=== PATIENT | male | born 1960 | race Caucasian/White ===

== ENCOUNTER 2016-10-05 01:05 | Inpatient (IN) ==
[2016-10-05] MEDS ORDERED: DILAUDID IV ONE ×3 (01:47→02:35)
[2016-10-05 01:48] LABS: MANUAL DIFF NEEDED? NO
[2016-10-05 01:50] LABS: BASO% 0.6 % (0.0-0.8); EOS# 0.05 X1000 (0.0-0.7); EOS% 0.6 % (0.0-10.0); HEMATOCRIT 43.3 % (42.0-52.0); HEMOGLOBIN 15.4 g/dL (14.0-18.0); IMM GRAN# 0.02 X1000 (0.0-0.04); IMM GRAN% 0.2 % (0.0-0.5); LYMPH# 2.66 X1000 (1.2-3.4); LYMPH% 31.9 % (20.5-51.1); MCH 36.2 PG (27-31); MCHC 35.6 g/dL (33-37); MCV 101.6 FL (81-99); MONO% 7.2 % (1.7-9.3); MPV 11.6 FL (7.4-10.4); NEUT% 59.5 % (42.2-75.2); PLT 170 X1000 (130-400); RBC 4.26 XMIL (4.7-6.1)
[2016-10-05] MEDS ORDERED: DILAUDID ONE (01:50)
[2016-10-05] MEDS ORDERED: ZOFRAN ONE (01:50)
[2016-10-05] MEDS ORDERED: ZOFRAN IV ONE (01:51)
[2016-10-05 02:21] LABS: AGAP 14; ALBUMIN 4.4 g/dL (3.5-5.0); ALKALINE PHOSPHATASE 142 U/L (32-122); BUN 14 mg/dL (8-22); CALCIUM 10.1 mg/dL (8.8-10.2); CHLORIDE 99 mmol/L (98-107); COSMO 281; GOT 18 U/L (10-34); GPT 16 U/L (10-44); POTASSIUM 3.8 mmol/L (3.5-5.1); SODIUM 139 mmol/L (136-145); TCO2 26 mmol/L (25-35); TOTAL BILIRUBIN 0.46 mg/dL (0.20-1.00)
--- NOTE | 2016-10-05 03:20 | HISTORY AND PHYSICAL ---
PRIMARY CARE PHYSICIAN: Dr. Tana Rose. CHIEF COMPLAINT: Status post fall, right ankle pain, left wrist pain. HISTORY OF PRESENTING ILLNESS: This 56-year-old male with a history of DVT, seizures, diabetes mellitus type 2, and hypertension apparently was drinking when he went to his backyard and somehow tripped over the carpet and landed on his left wrist, and seems to have tangled his foot on a small hole in the backyard. He developed a moderate amount of pain and was brought to the emergency department. He had imaging done which did show a right tibial-fibular fracture. It was comminuted and also impacted, left radial fracture. Due to his presenting symptoms, it was thought that he would need admission for further orthopedic evaluation and management. At the time of my examination, he had denied any headache, fever, chills, chest pain, shortness of breath, hemoptysis, or any weight changes but complained of right ankle and wrist and forearm pain. PAST MEDICAL HISTORY: Includes hypertension, hypothyroidism, diabetes mellitus type 2, DVT, seizures. PAST SURGICAL HISTORY: Cholecystectomy, right knee surgery, left eye surgery, IVC filter. ALLERGIES: No known drug allergies. CURRENT MEDICATIONS: As listed in the MAR. SOCIAL HISTORY: He is a former smoker. He uses snuff now. History of alcohol use daily. Denies any illicit drug use. FAMILY HISTORY: No history of coronary disease. REVIEW OF SYSTEMS: Twelve point review of systems as listed in the HPI. Other systems negative. PHYSICAL EXAMINATION: GENERAL: Cooperative, friendly, obese male. He is resting comfortably now. VITAL SIGNS: Temperature 99.1 degrees, pulse 95, respirations 20, blood pressure 121/93. HEENT: Extraocular movements intact. PERRLA. NECK: No masses. CHEST: Clear to auscultation. CARDIOVASCULAR: Regular rate and rhythm. ABDOMEN: Soft, obese, positive bowel sounds. EXTREMITIES: Right leg in a splint. Left forearm with moderate tenderness. : No bladder distention. SKIN: Warm. NEUROLOGIC: He is awake, alert, oriented x3. LABORATORIES AND STUDIES: WBCs 8.35, hemoglobin 15.4, hematocrit 43.3, platelets 170,000. Sodium 139, potassium 3.8, chloride 99, CO2 of 26, BUN is 14, creatinine is 1.2, glucose 157. ASSESSMENT: A 56-year-old male with a history of hypertension, diabetes mellitus type 2, deep venous thrombosis, and seizures, apparently was drinking and when he went to his backyard, he somehow slipped on the carpet and he twisted his ankle on a small hole that was in the backyard. He fell onto his arm and developed moderate pain in his right ankle. He had presented to the emergency department. He had imaging done which showed a right tibia-fibula fracture and also left impacted radial fracture. Due to his presenting symptoms, he will need hospitalization for further management. 1. Status post mechanical fall. 2. Right tibia-fibula fracture. 3. Left radial impacted fracture. 4. Chronic alcoholism. 5. Deep venous thrombosis, on Eliquis. 6. Diabetes mellitus type 2. 7. Hypertension. PLAN: 1. We will admit patient to medical floor with telemetry. 2. We will give the patient adequate pain control. 3. We will consult orthopedics. 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 5. We will hold his Eliquis in anticipation for possible surgery. 6. We will monitor blood glucose and put the patient on sliding scale insulin regimen. 7. We will monitor blood pressure and resume antihypertensive agents. 8. We will put patient on seizure precautions. 9. We will continue to follow and reassess. cc: Ruperto Carrillo MD
[2016-10-05] MEDS ORDERED: VASOTEC IV PRN (03:31)
[2016-10-05] MEDS: DILAUDID IV PRN ×6 (04:01→22:10)
--- NOTE | 2016-10-05 08:34 | Diag Imaging Result Doc PS360 ---
ANKLE COMPLETE RIGHT - 10/05/2016 INDICATION: post reduction TECHNIQUE: Three views COMPARISON: One hour earlier FINDINGS: There is very little change in the alignment of the comminuted, displaced both bone tibia and fibula fracture. The ankle mortise remains intact. IMPRESSION: No change from prior. Electronically signed by Loi Mcgowan 10/05/2016 8:32 AM
--- NOTE | 2016-10-05 08:35 | Diag Imaging Result Doc PS360 ---
ANKLE COMPLETE RIGHT - 10/05/2016 INDICATION: FALL TECHNIQUE: Three views COMPARISON: None FINDINGS: There is a badly comminuted, displaced both bone distal tibia and fibula fracture. This is all above the ankle mortise. The ankle mortise is intact. IMPRESSION: Comminuted, displaced both bone distal lower leg fracture. Electronically signed by Loi Mcgowan 10/05/2016 8:33 AM
--- NOTE | 2016-10-05 08:36 | Diag Imaging Result Doc PS360 ---
WRIST COMPLETE LEFT - 10/05/2016 INDICATION: FALL TECHNIQUE: Three views COMPARISON: None FINDINGS: There is a severely impacted distal radius fracture. No dislocation of the radiocarpal joint. There is displaced fracture of the ulnar styloid process as well. IMPRESSION: Severe Colles' fracture. Electronically signed by Loi Mcgowan 10/05/2016 8:34 AM
--- NOTE | 2016-10-05 08:36 | Diag Imaging Result Doc PS360 ---
CHEST-1 VIEW - 10/05/2016 INDICATION: fall TECHNIQUE: COMPARISON: 05/29/2012 FINDINGS: The lungs are normally expanded and clear. Heart size and mediastinal contours are normal. No pneumothorax or pleural effusion. IMPRESSION: Negative exam. Electronically signed by Loi Mcgowan 10/05/2016 8:33 AM
[2016-10-05] MEDS: DEPAKOTE ER PO SCH ×2 (09:18→20:30)
[2016-10-05] MEDS: HUMULIN R SUBQ SCH ×3 (11:50→20:31)
[2016-10-05] MEDS: PERCOCET-5 PO PRN ×3 (11:56→20:30)
[2016-10-05] MEDS: TORADOL IV SCH ×3 (11:58→22:10)
[2016-10-05] MEDS: SODIUM CHLORIDE 0.9% INJ SCH (11:58)
[2016-10-05] MEDS: PROTONIX IV SCH (11:59)
--- NOTE | 2016-10-05 12:18 | Diag Imaging Result Doc PS360 ---
LOWER LEG-RIGHT - 10/05/2016 at 1153 INDICATION: Tib/Fib Fx with TKA TECHNIQUE: Four views COMPARISON: 0254 FINDINGS: There is a right total knee arthroplasty. There is significant irregularity of the femoral shaft distally consistent with old healed injuries. No hardware fracture or loosening. No change in the severe ankle fracture. IMPRESSION: No new findings. Electronically signed by Loi Mcgowan 10/05/2016 12:15 PM
--- NOTE | 2016-10-05 18:13 | CONSULTATION ---
DATE OF CONSULTATION: 10/05/2016 SUBJECTIVE: Hakan Don is a 56-year-old male who states he tripped and fell, injured his left wrist and right leg. He was admitted for a right tibia-fibula fracture and a left wrist injury. He states he has had a right total knee arthroplasty. PHYSICAL EXAM: Well-developed, well-nourished male. He is alert and cooperative with exam. He has pain any range of motion of his leg. He has pain with range of motion his wrist as well. Both neurovascular intact. X-rays show a comminuted distal 4th tibia-fibula fracture on the right. X-rays of his wrist show a comminuted 3-part intraarticular distal radius fracture. IMPRESSION: Right comminuted tibiofibular fracture distally and left comminuted distal radius fracture intraarticular 3-part. PLAN: Plan will be to place plate and screws on his left wrist, likely plate and screws of his fibula, the difficulty is the tibia. Normally we would place and intramedullary nail however with his total knee in place he will likely need the plate and screws of the tibia which I do not routinely do. I am going to order some tibia-fibula x-rays and discuss this with my partner, is possibility we may have to refer him to [place] for surgical intervention. cc: Greg Street MD
[2016-10-06] MEDS: PERCOCET-5 PO PRN ×2 (00:45→07:46)
[2016-10-06] MEDS: DILAUDID IV PRN ×5 (01:50→16:42)
[2016-10-06] MEDS: TORADOL IV SCH ×4 (05:01→23:38)
[2016-10-06 05:58] LABS: HEMOGLOBIN 14.3 g/dL (14.0-18.0); MCH 36.2 PG (27-31); MCHC 34.9 g/dL (33-37); MCV 103.8 FL (81-99); MPV 11.6 FL (7.4-10.4); RBC 3.95 XMIL (4.7-6.1)
[2016-10-06] MEDS: HUMULIN R SUBQ SCH ×3 (06:48→16:43)
[2016-10-06 07:14] LABS: AGAP 15; BUN 16 mg/dL (8-22); CALCIUM 9.5 mg/dL (8.8-10.2); CHLORIDE 98 mmol/L (98-107); COSMO 279; POTASSIUM 4.5 mmol/L (3.5-5.1); SODIUM 139 mmol/L (136-145); TCO2 26 mmol/L (25-35)
--- NOTE | 2016-10-06 08:35 | PROGRESS NOTE ---
DATE: 10/06/2016 SUBJECTIVE: Mr. Don is lying in the bed this morning. Unfortunately, he had tripped in his back yard and ended up twisting his leg and breaking it on the right side and fallen on his wrist on the left side and broke it. He was admitted per the hospitalist service. My partner, Dr. Cai saw him, and I will be taking over his care today. He is splinted on the right lower extremity and has a removable wrist splint on the left side. PHYSICAL EXAMINATION/OBJECTIVE: Left Upper Extremity Examination: He can move all his fingers. Not a lot of swelling to the wrist on exam today. Had good sensation to light touch to the fingers. No skin ulcerations or abrasions seen. Right Lower Extremity Examination: Right lower extremity was splinted. He does not move the toes well. Has good capillary refill to all the toes. RADIOGRAPHS: Radiographs were reviewed which shows a right distal 3rd tibia fracture with a butterfly fragment medially and distal fibula fracture as well. Radiographs of the left wrist shows a distal radius fracture that is the shortening and somewhat displaced. ASSESSMENT: 1. Left distal radius fracture. 2. Left the distal tibia and fibula fracture. PLAN: Will plan on getting things fixed today. Mr. Don is NPO. We will plan on plating both the tibia and the fibula and the distal radius. I went over with him the procedure, risks, benefits, and potential complications. Risks include, but are not limited to, infection, wound healing problems, damage to nerves, arteries, veins, numbness, malunion, nonunion, hardware related issues, continued pain, deep venous thrombosis, and anesthesia related risks. After discussing these with the patient, he expressed understanding and wished to proceed. He does have a history of deep venous thrombosis so he will go on Lovenox postoperatively for deep venous thrombosis prophylaxis. cc: Kaleb Gardner MD
[2016-10-06] MEDS: DEPAKOTE ER PO SCH ×2 (09:22→23:39)
[2016-10-06] MEDS: SODIUM CHLORIDE 0.9% INJ SCH (10:42)
[2016-10-06] MEDS: PROTONIX IV SCH (10:43)
--- NOTE | 2016-10-06 14:56 | PROGRESS NOTE ---
DATE: 10/06/2016 SUBJECTIVE: Patient reports feeling severe pain in the left hand and right leg. OBJECTIVE: Vital Signs: Temperature 97.5 degrees, heart rate 50, respiratory rate 14, blood pressure 136/70, O2 saturation 95% on room air. General: This is a 56-year-old, chronically ill looking male, lying in bed, in no acute distress. HEENT: Head is normocephalic, atraumatic. Anicteric sclerae and pale conjunctivae. Mucous membranes moist. Neck: Supple. No JVD noted. No carotid bruits. No lymphadenopathy. No thyromegaly. Cardiovascular: S1, S2 heard. No murmurs, gallops, or rubs. Regular rate and rhythm. Respiratory: Clear bilaterally to auscultation. No work of breathing or using accessory muscles. Abdomen: Soft, nontender to palpation. Bowel sounds present. No organomegaly. Extremity: Right leg in a splint, left forearm with moderate tenderness to palpation, also with a splint. Neurological: Patient awake and oriented x3. Able to move 4 extremities. Cranial nerves 2-12 grossly normal. LABORATORY DATA: The BMP and CMP are normal. ASSESSMENT AND PLAN: 1. Right tibia-fibula fracture/left radial impacted fracture. Dr. Gardner from Orthopedics is going to take this patient to the OR this afternoon. We will follow his recommendations. 2. Chronic alcoholism. We are going to monitor this patient closely and start baclofen 10 mg 2 times per day for possible alcohol withdrawal. 3. Deep venous thrombosis, on Eliquis. We are going to definitely hold all blood thinners until this patient gets surgery and after that, I think we can restart Eliquis. 4. Diabetes mellitus type 2. We will continue with sliding scale insulin. 5. Hypertension. Blood pressure is well controlled. cc: Rafael Braxton MD
[2016-10-06] MEDS ORDERED: DIPRIVAN 1% ONE (17:45)
[2016-10-06] MEDS ORDERED: QUELICIN (DOSE) ONE (17:45)
[2016-10-06] MEDS ORDERED: FENTANYL ONE ×2 (17:47→19:10)
[2016-10-06] MEDS ORDERED: KEFZOL 2 GM/D5W 2 GM/50 ML IVPB ONE (17:53)
[2016-10-06] MEDS ORDERED: ROBINUL ONE (18:13)
[2016-10-06] MEDS ORDERED: OFIRMEV 1000 MG/ISOTONIC SOLN 1,000 MG/100 ML BOTTLE ONE (18:14)
[2016-10-06] MEDS: DEMEROL ONE ×2 (21:18→23:33)
[2016-10-06] MEDS: LABETALOL ONE ×2 (21:44→23:32)
[2016-10-06] MEDS: NORCO-10 PO PRN (23:38)
[2016-10-06] MEDS: DESYREL PO SCH (23:39)
[2016-10-06] MEDS ORDERED: NS 1,000 ML ONE (23:47)
[2016-10-07] MEDS: HUMULIN R SUBQ SCH ×5 (00:22→23:14)
[2016-10-07] MEDS: DILAUDID IV PRN ×4 (00:32→23:13)
[2016-10-07] MEDS: TORADOL IV SCH ×2 (05:35→11:27)
[2016-10-07] MEDS: NORCO-10 PO PRN ×3 (05:35→20:34)
--- NOTE | 2016-10-07 07:51 | OPERATIVE NOTE ---
PROCEDURE DATE: 10/06/2016 PREOPERATIVE DIAGNOSES: 1. Left distal radius fracture (intra-articular). 2. Right tibial shaft fracture with butterfly fragment. 3. Right fibular fracture with butterfly fragment. POSTOP DIAGNOSES: 1. Left distal radius fracture (intra-articular). 2. Right tibial shaft fracture with butterfly fragment. 3. Right fibular fracture with butterfly fragment. PROCEDURES: 1. Left open reduction internal fixation distal radius fracture. 2. Right open reduction internal fixation tibial shaft fracture. 3. Right open reduction internal fixation distal fibular fracture. 4. A 22 modifier for a difficult case. SURGEON: Kaleb Gardner MD. STEEL FABRICATOR: BRIAN Quintana. ANESTHESIA: General with LMA. ESTIMATED BLOOD LOSS: For the total case 50 mL. IMPLANTS: For the wrist a Synthes distal radius plate and screws. For the right leg a Synthes large fragment metaphyseal plate for the tibial shaft and Synthes 1/3 tubular plate and screws for the distal fibular fracture. DISPOSITION: To PACU, hemodynamically stable. INDICATION FOR PROCEDURE: Mr. Don is a 56-year-old male who presented to the emergency department yesterday after a fall. He was admitted per the hospitalist service, made NPO after midnight. He was found to have a left distal radius fracture and a right tib-fib fracture. I discussed with him this morning about operative intervention. We went over the procedure, risks, benefits, and potential complications. He expressed understanding and wished to proceed. DESCRIPTION OF PROCEDURE: Mr. Don was identified in the preop holding area. Left wrist was marked as the correct surgical site and the right leg was marked as the correct surgical site. He was then wheeled to the operating room, placed supine on the operating table. All bony prominences well padded. He was induced under general anesthesia. Endotracheal tube was placed. We decided to start with left distal radius first. So, a left arm tourniquet was placed. The left upper extremity then prepped with chlorhexidine gluconate scrub and then ChloraPrep and draped in normal sterile fashion. Surgical pause was performed. We identified the correct patient, correct side, and the correct procedure. Preop antibiotics were given. Esmarch was used to exsanguinate the left upper extremity and tourniquet inflated to 250 mmHg. Started with a volar approach to the distal radius. Dissection was carried down through the FCR tendon sheath, down to the pronator quadratus, which was lifted off the radial aspect of the distal radius. We identified our fracture which was fairly comminuted and there was a free piece there that we removed since it had no soft tissue attachments. We pulled longitudinal traction which helped with our reduction and then I pinned it with a K-wire. Then squeezing from radial to ulnar I reduced the intra-articular piece and pinned it as well. Fluoroscopic imaging showed we had good reduction of our joint in both AP and lateral views. I then put my plate in position. I secured it proximally with a nonlocking screw and then secured it distal with all the locking pegs and then 2 more proximal screws. Temporary fixation wires were then removed. Final images were taken which showed we had good reduction of our distal radius and good position of all our plates and screws. I then irrigated everything copiously with normal saline. Then 2-0 Vicryl was used to close subcutaneous and nylon on the skin. Adaptic, 4 x 4s, ABD, soft roll, and volar splint was applied. Tourniquet was let down. The patient had good refill return to the fingers. We then took down all of the drapes. We then focused on the right lower extremity. Tourniquet was placed to the right thigh. Right lower extremity then prepped with chlorhexidine gluconate scrub and then ChloraPrep, and draped in normal sterile fashion. Another surgical pause was performed at this time to identified the correct patient, correct side, and the correct procedure. Preop antibiotics had already been given. Esmarch used to exsanguinate the right lower extremity and tourniquet was inflated to 300 mmHg. We started on the medial side. I made an incision right around the medial malleolus and then percutaneously slid our plate up the medial face of the tibia. I passed that butterfly fragment up into the proximal tibia. I did put a 22 modifier because his tibial alignment was already malunited from his total knee arthroplasty and if you looked he had a lot of bowing to the tibia and it was a little bit difficult to see exactly where his alignment was preoperatively. plate to accommodate his deformity and to line up that fracture really as best we could. Once we had everything in line really fairly well, I secured the plate distally 1st and then made an incision proximally and secured it with several screws then as well. Fluoroscopic imaging was taken and it looked like he was a little bit of varus but his overall alignment looked normal for him and that is what was very difficult to metal tank builder was what was his preop alignment. Actually the fracture lined up really well and the fibula was out to length as well, so I do not think we were in varus through our fracture site. I then percutaneously put some more screws in, secured everything both proximally and distally. After that we turned our attention to the distal fibula. Incision was made over the distal fibula longitudinally. Dissection was carried down to the level of the fracture. There was a large butterfly fragment posteriorly. We ended up rotating it around and lining it up to help get our length. That fracture was actually pretty comminuted but I am getting a good alignment and we were out to length. It did like we were too long or too short on our fibula. Then I just bridge plated past everything with a 10 hole 1/3 tubular plate. I screwed it distal and proximal and that held things together very well. Final images were taken which showed we had good tibial and fibular fixation. Like I said, the alignment was very hard to metal tank builder overall, but I think we got him back to where he was preoperatively. I then irrigated everything copiously with normal saline. We closed the deep layer with 0 Vicryl, the subcutaneous with 2-0 Vicryl, and the skin with teddy. Adaptic, 4 x 4s, ABD, soft roll, and posterior splint was applied. Tourniquet was let down. The patient had good capillary refill return to the toes. Patient was then awoke from general anesthesia, moved to his own bed, and taken to the PACU in stable condition. Postoperatively, patient will be nonweightbearing right lower extremity and limited weightbearing left upper extremity. He will be transferred back to the floor. We are working on getting rehab set up for him postoperatively. He will go on Lovenox for DVT prophylaxis postoperatively as well. cc: Kaleb Gardner MD
[2016-10-07] MEDS: DEPAKOTE ER PO SCH ×2 (09:00→20:35)
[2016-10-07] MEDS: PERIDEX MT SCH ×2 (09:00→20:35)
[2016-10-07] MEDS: PROTONIX IV SCH (11:27)
[2016-10-07] MEDS: SODIUM CHLORIDE 0.9% INJ SCH (11:28)
--- NOTE | 2016-10-07 15:28 | PROGRESS NOTE ---
DATE: 10/07/2016 SUBJECTIVE DATA: Mr. Don is alert and oriented, laying comfortably in the bed. He states he does have some pain, mostly to the right ankle, but also some pain in the left wrist, as well. He does state that he feels better than he thought that he would. OBJECTIVE DATA: Left upper extremity: The splint is clean, dry, and intact. He can wiggle all his fingers. He has good capillary refill. He has good color. The fingers are warm. He has good sensation. No numbness or tingling. Right lower extremity: The splint is clean, dry, and intact. He can wiggle the toes. He has good sensation. He denies numbness or tingling. He has good color and he has good capillary refill, and the toes are warm. IMPRESSIONS: 1. Postoperative left open reduction and internal fixation of distal radius fracture. 2. Right open reduction and internal fixation of tibia shaft fracture. 3. Right open reduction and internal fixation of distal fibular fracture. PLAN: Vital signs and lab work are all stable. His pain has been fairly well controlled. We will continue him to be nonweightbearing to the right lower extremity and he will be light weightbearing on the left upper extremity. He will likely need rehabilitation at time of discharge and, from an orthopedic standpoint, he is ready for discharge whenever the Hospitalist Service is ready. We will continue him on DVT prophylaxis until he is weightbearing. Dictated by BRIAN Quintana for Kaleb Gardner MD cc: BRIAN Quintana MD [facility]
--- NOTE | 2016-10-07 16:27 | PROGRESS NOTE ---
DATE: 10/07/2016 SUBJECTIVE: Today, Mr. Don referred to be doing fine. Just some pains to the fracture sites. OBJECTIVE: Vital signs: Blood pressure is 158/79, pulse of 98, respiration 18, temperature 99.5 degrees. General: Mr. Don is a 56-year-old male. He is in bed, in mild painful distress. HEENT: Mucosa is pink and moist. Anicteric. Acyanotic. Neck: Supple. Chest: Clear. Cardiovascular: Regular rate and rhythm. Abdomen: Soft. Extremities: No pedal edema. The right lower extremity is in orthopedic casts as well as the left upper extremity. EDITORIAL SPECIALIST: Patient is awake and oriented. LABORATORY DATA: None for today. Glucose is 128. ASSESSMENT: 1. Right tibia-fibular fracture. Left radial impacted fracture status post open reduction- internal fixation of the fractures by Dr. Gardner. Today is day one postoperative. Patient seems to be doing fine. 2. Chronic alcohol abuse. 3. Diabetes mellitus. Patient is on sliding scale. 4. Hypertension, stable. PLAN: In general, Mr. Don is doing fine. He is day 1 postop. He is getting deep venous thrombosis prophylaxis with Lovenox. We will continue adequate pain control. cc: Trevor Zhao MD
[2016-10-07] MEDS: LOVENOX SUBQ SCH (16:57)
[2016-10-07] MEDS: DESYREL PO SCH (20:35)
[2016-10-08] MEDS: NORCO-10 PO PRN ×3 (01:58→17:08)
[2016-10-08] MEDS: DILAUDID IV PRN ×3 (04:59→20:47)
[2016-10-08] MEDS: PERIDEX MT SCH ×2 (09:02→20:46)
[2016-10-08] MEDS: DEPAKOTE ER PO SCH ×2 (09:08→20:47)
[2016-10-08] MEDS: PROTONIX IV SCH (12:28)
[2016-10-08] MEDS: SODIUM CHLORIDE 0.9% INJ SCH (12:28)
[2016-10-08] MEDS: HUMULIN R SUBQ SCH ×2 (12:29→17:11)
--- NOTE | 2016-10-08 14:09 | PROGRESS NOTE ---
DATE: 10/08/2016 SUBJECTIVE DATA: Mr. Don is alert and oriented. He is currently lying comfortably in bed. He states he does have some pain still to the right ankle and the left wrist but it is better than yesterday. OBJECTIVE DATA: Left upper extremity: The splint is clean, dry, and intact. He can wiggle all of the fingers. He has good sensation. He has good capillary refill. Right lower extremity exam: The splint is clean, dry, and intact. He can wiggle the toes. He has good sensation. He denies numbness or tingling. He has good color. He has good capillary refill. The toes are warm. IMPRESSIONS: 1. Postoperative left open reduction internal fixation of distal radius fracture. 2. Right open reduction internal fixation of tibia shaft fracture. 3. Right open reduction internal fixation of distal fibular fracture. PLAN: Vital signs and lab work are all stable. Mr. Don states his pain is under control. We ordered physical therapy and he did get up with them and apparently he did well maintaining nonweightbearing to the right ankle. The plan is to get him to [facility] in [place]. He does have a bed there and from our standpoint, he is ready for discharge. We will continue him on DVT prophylaxis until he is weightbearing and he will follow up with us this Thursday in the office. Dictated by BRIAN Quintana for Kaleb Gardner MD cc: BRIAN Quintana MD [facility]
--- NOTE | 2016-10-08 15:46 | PROGRESS NOTE ---
DATE: 10/08/2016 SUBJECTIVE: Today, Mr. Don referred to be doing relatively fine. He has been evaluated this afternoon by PT. He did not do remarkably very well on their evaluation and they definitely recommended the patient does inpatient rehab. OBJECTIVE: Vital Signs: Blood pressure is 106/71, pulse is 94, respirations 16, temperature 97.6 degrees. On general exam, Mr. Don is a 56-year-old male. He is in bed, not in any distress. HEENT: Mucosa is pink and moist. Anicteric. Acyanotic. Neck is supple. Chest is clear. Cardiovascular: Regular rate and rhythm. Abdomen is soft, nontender. Extremities: No pedal edema. The right lower extremity is in orthopedic casts and left upper extremity is wrapped up in a Band-Aid. CAPTAIN WAITER/WAITRESS: Patient is awake and oriented. LABORATORY DATA: Chemistry is reviewed. Glucose is 190. ASSESSMENT: 1. Right tibia-fibula fracture. 2. Left radial fracture, status post open reduction and internal fixation of all the fractures by Dr. Gardner. Today is day 2 postop. Patient just barely had physical therapy today. We will, therefore, observe him overnight and see how he does and, hopefully, tomorrow he does a little better with physical therapy and we can discharge him to the rehab. 3. Chronic alcohol abuse. Patient has been counseled. 4. Diabetes mellitus. Patient was on sliding scale. We are going to start him back on his home medications including the glipizide 10 mg b.i.d. 5. Hypertension is controlled. 6. We will continue with DVT prophylaxis. cc: Trevor Zhao MD
[2016-10-08] MEDS: LOVENOX SUBQ SCH (17:08)
[2016-10-08] MEDS: DESYREL PO SCH (20:47)
[2016-10-09] MEDS: HUMULIN R SUBQ SCH ×3 (01:49→11:11)
[2016-10-09] MEDS: DILAUDID IV PRN ×2 (02:03→05:01)
[2016-10-09 06:01] VITALS: BP 112/65
--- NOTE | 2016-10-09 08:30 | DISCHARGE SUMMARY ---
ADMISSION DATE: 10/05/2016 DISCHARGE DATE: 10/08/2016 PERTINENT PROCEDURES: 1. Lower extremity x-ray showed irregularity of the femoral shaft distally consistent with old healed injuries, no new findings. 2. Ankle x-ray on the right showed displaced both bone tibia and fibula fracture. 3. Chest x-ray was negative exam. 4. Wrist x-ray showed a severe Colles fracture. 5. Left open reduction and internal fixation of distal radius fracture, right open reduction and internal fixation of tibial shaft fracture, and right open reduction and internal fixation of distal fibula fracture performed by Dr. Gardner. DISCHARGE DIAGNOSES: 1. Status post left open reduction and internal fixation of distal radius fracture. Right open reduction and internal fixation of tibia shaft fracture. Right open reduction and internal fixation of distal fibular fracture. The patient is nonweightbearing to the right lower extremity. Light weightbearing to the left upper extremity. He will be discharged to rehab and will continue on DVT prophylaxis until he is weightbearing. 2. Chronic alcohol abuse. The patient has been educated about cessation. No signs and symptoms of withdrawal. Stable. 3. Diabetes mellitus. Continue pattern sugars. 4. Hypertension, stable. 5. Seizures. Continue Depakote. 6. Deep vein thrombosis status post [place] filter. 7. Hypothyroidism. HOSPITAL COURSE: Mr. Don is a 56-year-old male who carries a history of DVT status post [place] filter, seizures, diabetes mellitus type 2, hypertension. He had been drinking in his backyard. He somehow tripped over the carpet, landed on his left wrist, and seemed to have tangled his foot in a small hole in the backyard. He developed a moderate amount of pain and was brought to the emergency room. His imaging showed a right tibia/fibular fracture. It was communicated and also impacted, as well as a left radial fracture the patient was admitted for orthopedic evaluation. His serum alcohol level on arrival to the ED was 229. He was closely monitored for any signs and symptoms of withdrawal. The patient remained stable throughout his hospital stay. He did undergo a left open reduction and internal fixation of his distal radius fracture, right open reduction and internal fixation of the tibial shaft fracture, and a right open reduction and internal fixation of distal fibular fracture by Dr. Gardner. The patient's pain has been fairly well controlled. He will be nonweightbearing on the right lower extremity and light weightbearing to the left upper extremity. He has worked with PT ans secondary social studies teacher has found him placement. He is being discharged to rehab today and he will need to continue DVT prophylaxis until he is weightbearing. VITAL SIGNS: Temperature is 97.6 degrees, heart rate 94, respirations 16, blood pressure 106/71, O2 is 95% on room air. DISCHARGE DIET: Diabetic. DISCHARGE MEDICATIONS: As per Dr. Zhao. FOLLOWUP: The patient is being discharged to rehab. He will follow up with Dr. Gardner on 10/13/2016, as well as Dr. Tana Rose after rehab. Again, patient will be nonweightbearing to his right lower extremity and light weightbearing on his left upper extremity. We will continue with DVT prophylaxis until he is weightbearing. He has also been educated about alcohol cessation. He can return to the ED for any worsening of symptoms. DISCHARGE TIME: 30 minutes. Dictated by BRIAN Benavidez for Trevor Zhao MD cc: MD Tana Mensah MD Patient seen and evaluated by me and he is ok to be discharged. Please see the details of my progress note on day of discharge. HARLEY
[2016-10-09] MEDS: DEPAKOTE ER PO SCH (09:29)
[2016-10-09] MEDS: NORCO-10 PO PRN (09:31)
[2016-10-09] MEDS: PERIDEX MT SCH ×2 (09:32)
[2016-10-09] MEDS: PROTONIX IV SCH ×2 (09:38→11:12)
[2016-10-09] MEDS: SODIUM CHLORIDE 0.9% INJ SCH (09:38)
--- NOTE | 2016-10-09 10:33 | PROGRESS NOTE ---
DATE: 10/09/2016 SUBJECTIVE: Today Mr. oDn refers to be doing a lot better. He has been able to sit up in the bed to eat his breakfast. No major complaints. OBJECTIVE: Vital Signs: Stable. Blood pressure is 112/65, pulse of 84, respirations 16, and temperature 97.9 degrees. General: On general exam, Mr. Don is a 56-year-old male. He is in bed, not seemingly distressed. HEENT: Mucosa is pink and moist. Anicteric. Acyanotic. Neck: Supple. Chest: Clear. Cardiovascular: Regular rate and rhythm. Abdomen: Soft, nontender. Extremities: No pedal edema. The right lower extremity is in orthopedic cast. The left upper extremity is wrapped up in orthopedic bandage. DIRECTOR OF CORPORATE SALES: Patient is awake and alert and oriented. LABS: Glucose is 150 this morning. ASSESSMENT: 1. Right tibia-fibula fracture and left radial fracture status post open reduction and internal fixation of all the fractures. Today is day 3 postoperatively; the patient seems to be doing fine. He is going to be discharged to rehabilitation this morning. 2. Chronic alcohol abuse. Patient has been counseled. 3. Diabetes mellitus, controlled. The patient will continue with his oral hypoglycemic agents. 4. Hypertension, controlled. 5. 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 Patient is followed up by his primary care doctor and a physician in [place] as well. PLAN: So, in general, Mr. Don is doing a lot better today. We are going to discharge him to a rehab facility to continue with his physical rehabilitation. He will continue on all his medications at home. We have given him a script for [place] for adequate pain control. Please refer to the details of the discharge summary in the chart. cc: Trevor Zhao MD
[2016-10-09] MEDS ORDERED: MILK OF MAGNESIA PO ONE (11:45)
--- NOTE | 2016-10-10 03:41 | DISCHARGE SUMMARY ---
ADMISSION DATE: 10/05/2016 DISCHARGE DATE: 10/09/2016 ADDENDUM REPORT The patient will be discharged today to [facility] in [place]. He has had no acute events overnight. He remains clinically stable for discharge. VITAL SIGNS: Temperature is 97.9 degrees, heart rate 84, respirations 16, blood pressure is 112/65, O2 is 96% on room air. Dictated by BRIAN Benavidez for Trevor Zhao MD cc: Trevor Zhao MD
--- NOTE | 2016-10-15 19:38 | PROVIDER DOCUMENTATION ---
This chart was entered by Choco Fultno Scribe, acting as scribe for Júnior Hunt MD. HPI-Musculoskeletal Pain/Inj - GENERAL Chief Complaint: Intoxicated Stated Complaint: seizure/ankle inj Time Seen by Provider: 10/05/16 01:09 Source: patient - HX OF PRESENT ILLNESS-MUSKULOSKELTAL Nature of Presenting Problem: Pt is a 56 yowm who presents to ER via EMS with CC of right ankle and left wrist injury, secondary to fall. Pt reports that he was walking outside, across his lawn, when his right foot became caught in a hole, causing pt to twist his right ankle and land on his left wrist. Pt denies any LOC/N/V/or changes in vision. Pt admits to drinking 1/2 case of beer. Pt denies having a seizure. Quality of Pain: reports: cramping, throbbing Severity in ED: moderate Onset/Duration: just prior to arrival Timing: still present Any recent injury?: Yes Locality of Occurance: Home Similar Symptoms Previously?: No Recently seen or treated by another doctor?: No - FALL INJURY Location of Pain/Injury: reports: upper extremity (left wrist), lower extremity (right ankle) Pain Radiation: reports: no radiation Reason for Fall: reports: tripped Symptoms prior to fall:: reports: none Loss of Consciousness: no loss of consciousness Injury Associated Symptoms: reports: joint pain, muscle aches, unable to bear weight, trouble walking. denies: arm pain, back/neck pain, chest pain, dizziness, headaches, nausea, puncture wound, shortness of breath, sensory/ motor loss, snap/crack/pop sensation, pain with inspiration, vomiting, weakness Review of Systems - Adult - REVIEW OF SYSTEMS - ADULT Constitutional: denies: chills, fever, fatique, night sweats, weight gain, weight loss Eyes: reports: no symptoms reported Ears, Nose, Mouth & Throat: reports: no symptoms reported Cardiovascular: reports: no symptoms reported Respiratory: reports: no symptoms reported Gastrointestinal: reports: no symptoms reported Genitourinary: reports: no symptoms reported Musculoskeletal: reports: joint pain, joint swelling, muscle aches. denies: bone pain, back pain, frequent leg cramps, muscle weakness, neck pain Integumentary: reports: no symptoms reported Neurological: reports: no symptoms reported Psychiatric: reports: no symptoms reported Endocrine: reports: no symptoms reported Hematologic/Lymphatic: reports: no symptoms reported Allergic/Immunologic: reports: no symptoms reported All Other Systems: Reviewed and Negative Past History - Adult - PAST MEDICAL HISTORY-ADULT Review of Records: reports: Nursing Assessment Review, Medications Reviewed Cardiovascular: reports: blood clots (bilateral lower legs), HTN, hyperlipidemia Respiratory: reports: COPD Musculoskeletal: reports: arthritis (gouty), other (neuropathy) Other Conditions: reports: other cancer (skin) - PRIOR SURGERIES/PROCEDURES Surgical/Procedure History: reports: orthopedic (extremity), other (eye, ministerio filter) - IMMUNIZATION STATUS Childhood Immunizations: See Nurse Assessment Flu Vaccine: See Nurse Assessment Physical Exam-Injury Related - Physical Exam-Injury Related Initial Vital Signs Reviewed: Yes General Appearance: appears well, alert, moderate distress Eyes: PERRL/EOMI, pink conjunctivae Neck: non-tender, full range of motion, supple. negative: C-spine tenderness, decresed ROM, ecchymosis, pain on movement, swelling Respiratory: chest non-tender, lungs clear, normal breath sounds, no pleuratic chest pain, no respiratory distress, no accessory muscle use. negative: respiratory distress, decreased breath sounds, accessory muscle use, wheezing Cardiovascular: normal peripheral pulses, regular rate, rhythm. negative: bradycardia, tachycardia, irregularly irregular Abdominal Exam: normal bowel sounds, non tender, soft, no organomegaly, no pulsatile mass. negative: guarding, rebound, tenderness Extremity: no pedal edema, no calf tenderness, normal capillary refill, pelvis stable, swelling (right ankle; left wrist), tenderness (right ankle; left wrist) . negative: normal range of motion, non-tender, normal gait, deformity Neurologic: other (slurred speech from etoh) Psych/Mental Status: normal thought content, normal thought process, oriented x 3, anxious. negative: normal mood/affect Progress - PLAN OF CARE/RESULTS Progress/Plan/Lab Results: Orders Category Date Time Status Admit - [facility] Routine AdmDCTranf 10/05/16 03:31 Ordered Activity - Strict Bedrest ORDERED Care 10/05/16 03:31 Active Activity - Up with Assistance ORDERED Care 10/05/16 03:31 Completed FSBS/Accucheck Result AC + HS Care 10/05/16 03:31 Active Intake and Output-Strict ORDERED Care 10/05/16 03:31 Active Nursing- MD Consult Request ROUTINE Care 10/05/16 03:31 Completed OCL Splint DIRECTED Care 10/05/16 01:51 Completed Seizure Precautions ROUTINE Care 10/05/16 03:31 Active Vital Signs Order Q 8-HR ASSESS Care 10/05/16 03:31 Active Z-Document. for Tele Applied ORDERED Care 10/05/16 03:31 Completed Physician/Provider Consults Routine Cons 10/05/16 03:31 Ordered ANKLE COMPLETE RIGHT [RAD] Stat Exams 10/05/16 01:17 Completed ANKLE COMPLETE RIGHT [RAD] Stat Exams 10/05/16 02:31 Completed CHEST-1 VIEW [RAD] Stat Exams 10/05/16 01:25 Completed WRIST COMPLETE LEFT [RAD] Stat Exams 10/05/16 01:17 Completed BASIC METABOLIC PANEL [CHEM] Routine Lab 10/06/16 05:30 Completed CBC WITH ELECTRONIC DIFF [HEME] Stat Lab 10/05/16 01:37 Completed CBC WITH NO DIFF [HEME] Routine Lab 10/06/16 05:30 Completed COMPREHENSIVE METABOLIC PANEL [CHEM] Stat Lab 10/05/16 01:37 Completed ETOH [ALCOHOL BLOOD] Stat Lab 10/05/16 01:37 Completed Divalproex E.r. [Depakote ER] Med 10/05/16 09:00 Discontinued 500 mg PO BID Enalaprilat [Vasotec] Med 10/05/16 03:31 Discontinued 1.25 mg IV Q6H PRN PRN Hydromorphone [Dilaudid] Med 10/05/16 01:50 Discontinued 1 mg .ROUTE .STK-MED ONE Hydromorphone [Dilaudid] Med 10/05/16 01:47 Discontinued 1 mg IV NOW ONE Hydromorphone [Dilaudid] Med 10/05/16 02:30 Discontinued 1 mg IV NOW ONE Hydromorphone [Dilaudid] Med 10/05/16 02:35 Discontinued 1 mg IV NOW ONE Hydromorphone [Dilaudid] Med 10/05/16 03:31 Discontinued 1 mg IV Q4H PRN PRN Insulin Human Regular [Humulin R] Med 10/05/16 07:00 Discontinued See Protocol SUBQ 0700,1100,1600,2100 Ondansetron [Zofran] Med 10/05/16 01:50 Discontinued 4 mg .ROUTE .STK-MED ONE Ondansetron [Zofran] Med 10/05/16 01:51 Discontinued 4 mg IV NOW ONE Telemetry [OM.EQ] Routine Oth 10/05/16 03:31 Active Transfer/Admit Order [TRANSFER] Routine Transfer 10/05/16 02:47 Completed Result Diagrams: 10/06/16 05:30 10/06/16 05:30 - EKG 1 Time of EKG reading by physician:: 01:08 EKG Read and Signed by:: Júnior Hunt EKG Interpretation (*Must complete 3 of following elements*): Normal Rate: 90 Rhythm: NSR - XRAY 1 XRAY: Right XRAY Study: Ankle Impression: See EMR Report ( spiral, convoluted tib-fib fx - Dr. Hunt) XRAY Interpretation: See report 2 XRAY: Left XRAY Study: Wrist Impression: See EMR Report XRAY Interpretation: radial head fx - Dr. Hunt 3 XRAY: Bilateral XRAY Study: Chest Impression: See EMR Report (Normal - Dr. Hunt) - CONSULTS/PCP/HOSPITALIST Notification #1 *Consult/PCP/Hospitalist*: Dr. Street (Orthopedist) Time Discussed: 02:02 Reason/Comments: admit to Hospitalist; Will see pt in am #2 Consult: Dr. Carrillo (Hospitalist) Time Discussed: 02:05 Consult Disposition: Admit Procedures - SPLINTING Left Upper Extremity Pre-Procedure Neurovascular Exam: Intact Pre-Fabricated Splint: Velcro Applied By: strip tank tender Assisted By: strip tank tender Post Procedure Neurovascular Exam: Intact - DISLOCATION REDUCTION Right Ankle Time-Out Verification Completed?: Yes Pre-Procedure Neurovascular Exam: Intact Conscious Sedation: No Post Procedure Neurovascular Exam: Intact Post Reduction Splint Applied?: Yes (OCL) Departure - Departure Date of Disposition Decision: 10/05/16 Time of Disposition Decision: 02:00 DIAGNOSIS: Tibia/fibula fracture Qualifiers: Encounter type: initial encounter Fracture type: closed Colles' fracture Qualifiers: Encounter type: initial encounter Fracture type: closed Disposition: ADMITTED INPATIENT 09 Certified Medical Emergency: Emergent Condition: Stable - Critical Care Note This patient required my direct & personal management of CC.: No Attestation - Physician/ NICOLE Attestation The physician spent face to face time with patient:: Yes Advanced Practice Provider documentation review:: Supervising physician onsite and consulted in the evaluation and care of this patient. The physician did have a face to face encounter with the patient. This chart was documented by the indicated scribe, (Choco Fulton, Jessica) and accurately reflects the services I performed and decisions made by me, Júnior Hunt MD, as attested by the provider's signature.
== END 2016-10-09 14:17 ==
LOC: ED 01:05 → 4N 02:53 → SUATTDRO 02:53
PROVIDERS: ATTEND Internal Medicine